=== PATIENT | female | born 1965 | race Caucasian/White ===

== ENCOUNTER 2024-06-25 02:13 | Outpatient (RCR) | payer BC, SELFPAY ==
[2024-06-25] MEDS: Normal Saline Flush 10 ML SYR IVP (09:02)
[2024-06-25 09:13] LABS: Abs Immature Grans 0.01 10^3/uL (0.0-0.06); Absolute Basophil Count 0.02 10^3/uL (0.0-0.2); Absolute Monocyte Count 0.47 10^3/uL (0.1-0.8); Absolute Neutrophil Count 2.51 10^3/uL (1.2-6.7); Basophils % 0.4 %; HCT 31.7 % (36.0-46.0); HGB 10.6 g/dL (11.2-15.7); Immature Grans % 0.2 %; Lymphocytes % 33.3 %; MCH 32.4 pg (27.0-33.0); MCHC 33.4 % (32.0-36.0); MCV 97 fL (80-95); MPV 8.9 fL (8.0-11.0); Monocytes % 10.4 %; Neutrophils % 55.7 %; Platelet Count 114 10^3/uL (130-400); RBC 3.27 10^6/uL (3.93-5.22); RDW 15.6 % (11.7-14.6); RDW-SD 55.3 fL; WBC 4.51 10^3/uL (4.4-10.8)
[2024-06-25 09:32] LABS: ALT 38 U/L (14-59); AST 24 U/L (15-37); Albumin 3.6 g/dL (3.4-5.0); Alkaline Phosphatase 83 U/L (46-116); Anion Gap 5.5 mmol/L (3-11); BUN 19 mg/dL (7-18); Bilirubin, Total 0.39 mg/dL (0.2-1.0); CO2 28.5 mmol/L (21.0-32.0); CREATININE 0.9 mg/dL (0.55-1.02); Calcium 9.5 mg/dL (8.5-10.1); Chloride 107 mmol/L (98-107); Estimated GFR 73.64 (mL/min/1.73m2); Glucose 106 mg/dL (74-106); Potassium 4.2 mmol/L (3.5-5.1); Sodium 141 mmol/L (136-145); Total Protein 6.6 g/dL (6.4-8.2)
== END 2024-07-04 23:59 | disposition home or self-care (01) ==
LOC: INF 02:13
PROVIDERS: Internal Medicine; Visit Provider Internal Medicine Hematology & Oncology
DX: C50.312 Malignant neoplasm of lower-inner quadrant of left female breast (principal); Z17.1 Estrogen receptor negative status [ER-]
CPT/HCPCS: 36591; 80053; 85025

== ENCOUNTER 2024-07-16 04:16 | Outpatient (RCR) | payer BC, SELFPAY ==
[2024-07-16] MEDS: Normal Saline Flush 10 ML SYR IVP (09:19)
[2024-07-16 09:57] LABS: Abs Immature Grans 0.02 10^3/uL (0.0-0.06); Absolute Basophil Count 0.02 10^3/uL (0.0-0.2); Absolute Eosinophil Count 0.09 10^3/uL (0.0-0.7); Absolute Lymphocyte Count 1.65 10^3/uL (1.2-3.4); Absolute Monocyte Count 0.45 10^3/uL (0.1-0.8); Absolute Neutrophil Count 3.47 10^3/uL (1.2-6.7); Basophils % 0.4 %; Eosinophils % 1.6 %; HCT 33.8 % (36.0-46.0); HGB 11.3 g/dL (11.2-15.7); Immature Grans % 0.4 %; Lymphocytes % 28.9 %; MCH 32.6 pg (27.0-33.0); MCHC 33.4 % (32.0-36.0); MCV 97 fL (80-95); Monocytes % 7.9 %; Neutrophils % 60.8 %; Platelet Count 167 10^3/uL (130-400); RBC 3.47 10^6/uL (3.93-5.22); RDW 13.6 % (11.7-14.6)
[2024-07-16 10:13] LABS: ALT 25 U/L (14-59); AST 18 U/L (15-37); Albumin 3.8 g/dL (3.4-5.0); Alkaline Phosphatase 94 U/L (46-116); Anion Gap 8.4 mmol/L (3-11); BUN 22 mg/dL (7-18); Bilirubin, Total 0.4 mg/dL (0.2-1.0); CO2 27.6 mmol/L (21.0-32.0); Calcium 9.5 mg/dL (8.5-10.1); Chloride 106 mmol/L (98-107); Glucose 106 mg/dL (74-106); Sodium 142 mmol/L (136-145); Total Protein 7.1 g/dL (6.4-8.2)
== END 2024-08-04 23:59 | disposition home or self-care (01) ==
LOC: INF 04:16
PROVIDERS: Internal Medicine; Visit Provider Internal Medicine Hematology & Oncology
DX: C50.312 Malignant neoplasm of lower-inner quadrant of left female breast (principal); Z17.1 Estrogen receptor negative status [ER-]
CPT/HCPCS: 36591; 80053; 85025

== ENCOUNTER 2024-08-27 03:03 | Outpatient (RCR) | payer BC, SELFPAY ==
[2024-08-06 08:42] LABS: Abs Immature Grans 0.03 10^3/uL (0.0-0.06); Absolute Basophil Count 0.04 10^3/uL (0.0-0.2); Absolute Eosinophil Count 0.07 10^3/uL (0.0-0.7); Absolute Lymphocyte Count 1.99 10^3/uL (1.2-3.4); Absolute Monocyte Count 0.56 10^3/uL (0.1-0.8); Basophils % 0.7 %; Eosinophils % 1.1 %; HCT 34.4 % (36.0-46.0); HGB 11.8 g/dL (11.2-15.7); Immature Grans % 0.5 %; Lymphocytes % 32.7 %; MCHC 34.3 % (32.0-36.0); MCV 96 fL (80-95); MPV 9.2 fL (8.0-11.0); Monocytes % 9.2 %; Neutrophils % 55.8 %; Platelet Count 178 10^3/uL (130-400); RBC 3.58 10^6/uL (3.93-5.22); RDW 11.7 % (11.7-14.6); RDW-SD 41.3 fL; WBC 6.09 10^3/uL (4.4-10.8)
[2024-08-06] MEDS: Normal Saline Flush 10 ML SYR IVP (08:45)
[2024-08-06 08:56] LABS: ALT 28 U/L (14-59); AST 19 U/L (15-37); Albumin 3.8 g/dL (3.4-5.0); Alkaline Phosphatase 84 U/L (46-116); Anion Gap 9.5 mmol/L (3-11); BUN 26 mg/dL (7-18); Bilirubin, Total 0.5 mg/dL (0.2-1.0); CO2 27.5 mmol/L (21.0-32.0); Calcium 9.5 mg/dL (8.5-10.1); Chloride 105 mmol/L (98-107); Glucose 112 mg/dL (74-106); Potassium 4.1 mmol/L (3.5-5.1); Sodium 142 mmol/L (136-145); Total Protein 7.1 g/dL (6.4-8.2)
[2024-08-27 08:44] LABS: Abs Immature Grans 0.04 10^3/uL (0.0-0.06); Absolute Basophil Count 0.04 10^3/uL (0.0-0.2); Absolute Eosinophil Count 0.15 10^3/uL (0.0-0.7); Absolute Lymphocyte Count 2.07 10^3/uL (1.2-3.4); Absolute Monocyte Count 0.63 10^3/uL (0.1-0.8); Absolute Neutrophil Count 4.48 10^3/uL (1.2-6.7); Basophils % 0.5 %; HCT 37.5 % (36.0-46.0); HGB 12.9 g/dL (11.2-15.7); Immature Grans % 0.5 %; Lymphocytes % 27.9 %; MCHC 34.4 % (32.0-36.0); MCV 93 fL (80-95); MPV 9.1 fL (8.0-11.0); Monocytes % 8.5 %; Neutrophils % 60.6 %; Platelet Count 192 10^3/uL (130-400); RBC 4.03 10^6/uL (3.93-5.22); RDW 11.2 % (11.7-14.6); RDW-SD 38.2 fL; WBC 7.41 10^3/uL (4.4-10.8)
[2024-08-27] MEDS: Normal Saline Flush 10 ML SYR IVP (08:45)
[2024-08-27 08:57] LABS: ALT 34 U/L (14-59); AST 26 U/L (15-37); Albumin 3.9 g/dL (3.4-5.0); Alkaline Phosphatase 88 U/L (46-116); Anion Gap 10.6 mmol/L (3-11); BUN 27 mg/dL (7-18); Bilirubin, Total 0.4 mg/dL (0.2-1.0); CO2 25.4 mmol/L (21.0-32.0); CREATININE 1.1 mg/dL (0.55-1.02); Calcium 9.7 mg/dL (8.5-10.1); Chloride 105 mmol/L (98-107); Estimated GFR 57.88 (mL/min/1.73m2); Glucose 117 mg/dL (74-106); Potassium 4.1 mmol/L (3.5-5.1); Sodium 141 mmol/L (136-145); Total Protein 7.6 g/dL (6.4-8.2)
== END 2024-09-03 23:59 | disposition home or self-care (01) ==
LOC: INF 03:03
PROVIDERS: Nurse Practitioner Family; Visit Provider Internal Medicine Hematology & Oncology
DX: C50.012 Malignant neoplasm of nipple and areola, left female breast (principal); Z17.1 Estrogen receptor negative status [ER-]; Z45.2 Encounter for adjustment and management of vascular access device
CPT/HCPCS: 36415; 36591; 80053; 85025